=== PATIENT | female | born 1995 | race African-American/Black ===

== ENCOUNTER 2021-07-09 16:27 | Emergency (ER) | payer SELFPAY ==
[~2021-07-09] VITALS: Ht 165.1 cm; Wt 77.1 kg
[2021-07-09 16:27] VITALS: BP 126/62
--- NOTE | 2021-07-09 16:27 | NUR ---
C/O BILATERAL LOWER EXTREMITIES PAIN AND SWELLING, RECENT TRAVEL TO [facility] ARRIVED THIS AM. PT A/OX4. TOLERATING R/A WELL WITH NO SOB. PT ambulatory with a steady gait. CONNECTED PT TO POX AND MONITOR.
--- NOTE | 2021-07-09 17:49 | NUR ---
US TECH AT PT'S BEDSIDE
--- NOTE | 2021-07-09 18:25 | NUR ---
URINE COLLECTED AND SENT TO LAB
[2021-07-09 18:26] LABS: BASOPHILS # (AUTO) 0.1 K/uL (0.0-0.2); BASOPHILS % (AUTO) 0.6 % (0.0-2.0); EOSINOPHILS % (AUTO) 2.7 % (0.0-6.0); HEMATOCRIT 36 % (33-45); HEMOGLOBIN 11.9 g/dL (11.5-14.8); LYMPHOCYTES % (AUTO) 30.2 % (20.0-44.0); MEAN CORPUSCULAR HGB CONC 33 g/dl (31.0-36.0); MEAN CORPUSCULAR VOLUME 85 fL (82-100); MONOCYTES % (AUTO) 10.2 % (2.0-12.0); NEUTROPHILS # (AUTO) 5.6 K/uL (1.8-8.9); NEUTROPHILS % (AUTO) 56.3 % (43.0-81.0); PLATELET COUNT (AUTO) 272 K/uL (150-450); RED BLOOD CELL COUNT(AUTO) 4.27 MIL/uL (4.0-5.2); WHITE BLOOD COUNT (AUTO) 9.9 K/uL (4.3-11.0)
[2021-07-09 18:44] LABS: CALCIUM, SERUM 8.9 mg/dL (8.5-10.1); CREATININE 0.7 mg/dL (0.6-1.3); POTASSIUM 3.6 mmol/L (3.5-5.1)
[2021-07-09 18:50] LABS: ALBUMIN 3.8 g/dL (3.4-5.0); BILIRUBIN,TOTAL 0.2 mg/dL (0.2-1.0); TOTAL PROTEIN, SERUM 8.5 g/dL (6.4-8.2)
[2021-07-09 19:34] LABS: BILIRUBIN,URINE NEGATIVE (NEGATIVE); COLOR,URINE YELLOW (YELLOW); LEUKOCYTE ESTERASE ,URINE NEGATIVE (NEGATIVE); NITRITE, URINE NEGATIVE (NEGATIVE); PROTEIN,URINE NEGATIVE (NEGATIVE); UGLUCOSE NEGATIVE (NEGATIVE); UROBILINOGEN,URINE 0.2 EU/dL (0.2)
[2021-07-09] MEDS ORDERED: ACET-2605 PO (20:20)
--- NOTE | 2021-07-09 21:00 | NUR ---
STEPED INTO THE ROOM TO PROVIDE PT W/ THE D/C PAPERS. PT WAS GONE AND DID NOT WANNA WAIT FOR THE PAPERS.
== END 2021-07-09 21:00 | disposition home or self-care (01) ==
LOC: ER 16:35
DX: R60.0 Localized edema (principal)
CPT/HCPCS: 36415; 80048-TC; 80076-TC; 84703-TC; 85025-TC; 85730-TC; 93970-TC

== ENCOUNTER 2022-12-15 23:20 | Inpatient (IN) | payer MEDICAID, OTHER ==
[~2022-12-15] VITALS: Ht 167.6 cm; Wt 81.6 kg
[~2022-12-15 23:20] MED LIST: ACET-2605 PO
--- NOTE | 2022-12-15 23:24 | NUR ---
DAISY 87 FROM HOME FOR C/O PALPITATION X 30 MIN. -CP, +SOB PT A/OX4. TOLERATING R/A WELL WITH NO RESP DISTRESS. CONNECTED PT TO POX AND MONITOR. SAFETY MEASURES IN PLACE .
[2022-12-15] MEDS ORDERED: IV NS 0.9% 1,000 ML BAG IV ONE (23:30)
[2022-12-15] MEDS ORDERED: IV NS 0.9% 250 ML IV ONE (23:45)
[2022-12-15] MEDS ORDERED: CT SWABBABLE VALVE TRANS SET 1 EA INFUS.SET MC ONE (23:45)
[2022-12-15] MEDS ORDERED: IOHEXOL-350 100 ML VIAL IV ONE (23:45)
--- NOTE | 2022-12-15 23:48 | NUR ---
IV ESTABLISHED RAC #20G S/L. BLOOD AND URINE COLLECTED AND SENT TO LAB
[2022-12-16 00:02] LABS: BASOPHILS % (AUTO) 0.4 % (0.0-2.0); EOSINOPHILS % (AUTO) 1.8 % (0.0-6.0); HEMATOCRIT 37 % (33-45); HEMOGLOBIN 11.9 g/dL (11.5-14.8); LYMPHOCYTES # (AUTO) 3.5 K/uL (0.8-4.8); MEAN CORPUSCULAR HGB CONC 32 g/dl (31.0-36.0); MEAN CORPUSCULAR VOLUME 86 fL (82-100); MONOCYTES # (AUTO) 1.2 K/uL (0.1-1.30); NEUTROPHILS # (AUTO) 5.6 K/uL (1.8-8.9); NEUTROPHILS % (AUTO) 53.8 % (43.0-81.0); PLATELET COUNT (AUTO) 239 K/uL (150-450); WHITE BLOOD COUNT (AUTO) 10.5 K/uL (4.3-11.0)
[2022-12-16 00:08] LABS: CARBON DIOXIDE 25 mmol/L (21-32); CHLORIDE 99 mmol/L (98-107); CREATININE 0.8 mg/dL (0.6-1.3); GLUCOSE 120 mg/dL (74-106); POTASSIUM 3.2 mmol/L (3.5-5.1); SODIUM SERUM 135 mmol/L (136-145); UREA NITROGEN, BLOOD 7 mg/dL (7-18)
--- NOTE | 2022-12-16 00:42 | NUR ---
PT SIGNED WAIVER FORM
[2022-12-16 00:44] LABS: THYROID STIMULATING HORMONE 2.162 uIU/mL (0.358-3.74)
--- NOTE | 2022-12-16 00:44 | NUR ---
PT TAKEN TO CT VIA WILDA
[2022-12-16] MEDS ORDERED: IOHEXOL-350 100 ML VIAL IV ONE (01:11)
[2022-12-16] MEDS ORDERED: ACETAMINOPHEN 325 MG TABLET PO PRN (02:30)
[2022-12-16] MEDS ORDERED: ZOLPIDEM TARTRATE 5 MG TABLET PO PRN (02:30)
[2022-12-16] MEDS ORDERED: Z GUARD REMEDY 4 OZ OINT TP PRN (02:30)
[2022-12-16] MEDS ORDERED: MAGNESIUM HYDROXIDE 30 ML UDC PO PRN (02:30)
[2022-12-16] MEDS ORDERED: ONDANSETRON HCL/PF 4 MG/2 ML VIAL IVP PRN (02:30)
[2022-12-16] MEDS ORDERED: MAG HYDROX/AL HYDROX/SIMETH 30 ML UDC PO PRN (02:30)
[2022-12-16] MEDS ORDERED: IV NS 0.9% 1,000 ML IV PRN (02:30)
--- NOTE | 2022-12-16 02:34 | NUR ---
COVID ANTIGEN SWAB COLLECTED AND SENT TO LAB
[2022-12-16] MEDS ORDERED: POTASSIUM CHLORIDE 20 MEQ TAB.PRT.SR PO ONE ×2 (03:00→07:56)
[2022-12-16 03:15] LABS: BILIRUBIN,URINE NEGATIVE (NEGATIVE); COLOR,URINE YELLOW (YELLOW); LEUKOCYTE ESTERASE ,URINE 1+ (NEGATIVE); NITRITE, URINE NEGATIVE (NEGATIVE); PROTEIN,URINE NEGATIVE (NEGATIVE); UGLUCOSE NEGATIVE (NEGATIVE); UROBILINOGEN,URINE 0.2 EU/dL (0.2)
[2022-12-16 03:16] LABS: RBC,URINE 0-2 /HPF (0-2); SQUAMOUS EPITHELIAL CELL,UR Few /HPF (None Seen)
[2022-12-16 03:17] LABS: BACTERIA,URINE Few /HPF (None Seen)
--- NOTE | 2022-12-16 07:10 | NUR ---
RECEIVED PT FROM MARITO SANTOS PT AWAKE AND ALERT NO CHEST PAIN NO SOB
--- NOTE | 2022-12-16 07:37 | NUR ---
bed assigned going to 304.1. admitting aware.
--- NOTE | 2022-12-16 07:57 | NUR ---
report given to kwabena gleason. awaiting transfer to floor.
--- NOTE | 2022-12-16 08:07 | NUR ---
Luis Alfredo bell in ED - 12/16/22 at 0810 by MIREILLE RECEIVED PT FROM MARITO SANTOS PT AWAKE AND ALERT FALLOW COMAND RESPIRATION SPONT AND EASY NO CHEST PAIN NO SOB
[2022-12-16 09:00] VITALS: BP 120/80
[2022-12-16] MEDS ORDERED: CEFTRIAXONE 1 G in IV D5W 50 ML IV SCH (09:00)
[2022-12-16] MEDS ORDERED: ENOXAPARIN SODIUM 40 MG/0.4 ML DISP.SYRIN SQ SCH (09:00)
--- NOTE | 2022-12-16 10:32 | NUR ---
RN NOTES UPON INTERVIEW, PATIENT MENTIONED ALLERGY TO AMOXICILLIN PREVIOUSLY (BREAKOUTS AND RASH IN THE FACE AND NECK). UPDATED ALLERGY AND INFORMED PHARMACY. INFORMED HOSPITALIST, KEVIN GAVIRIA, AWAITING NEW ORDERS IF WILL PROCEED WITH CEFTRIAXONE.
--- NOTE | 2022-12-16 11:15 | NUR ---
NUTRITION SERVICES ASSOCIATE NOTES PATIENT IS ON TELE MONITORING UPON ADMISSION WITH READING OF SINUS TACHYCARDIA 82 HEART RATE. WILL CONTINUE TO MONITOR.
--- NOTE | 2022-12-16 11:20 | NUR ---
[facility] [employer] ADMITTING NOTES ADMITTED A 27Y/O FEMALE TO UNIT AT 0840 VIA GURNEY WITH DX OF SINUS TACHYCARDIA . PATIENT IS A/O X4 AND BALE TO MAKE NEEDS KNOWN. ORIENTED TO ROOM AND STAFF. V/S TAKEN, STABLE AND RECORDED. PT ON ROOM AIR, TOLERATING WELL, WITH NO ACUTE RESPIRATORY DISTRESS NOTED. IV ACCESS ON NOTED ON LEFT AC G# 20 , IVF OF NS @ 120ML/HR STARTED, NO S/S OF INFILTRATION AT SITE NOTED. LUNGS CLEAR ON AUSCULTATION BILATERALLY. ABDOMEN SOFT, NON TENDER AND NON DISTENDED WITH + BOWEL SOUNDS ON FOUR QUADRANTS. SKIN INTACT. SAFETY MEASURES IMPLEMENTED:BED PLACES ON LOWEST LOCKED POSITION WITH SR UP X2. TRAY TABLE AND CALL LIGHT W/I EASY REACH OF PT. WILL CONTINUE TO MONITOR PATIENT.
--- NOTE | 2022-12-16 11:24 | NUR ---
RN NOTES - HOSPITALIST ORDERED TO PUT A STOP ON CEFTRIAXONE, WILL CONTINUE TO MONITOR.
[2022-12-16 12:00] VITALS: BP 109/70
[2022-12-16 16:00] VITALS: BP 103/60
--- NOTE | 2022-12-16 17:30 | NUR ---
GENERAL MAINTENANCE HELPERBUN PANNER NOTES PT DISCHARGED TO HOME IN STABLE CONDITION, PT IS A/O X4 , ABLE TO MAKE NEEDS KNOWN, BREATHING WITHOUT ANY DIFFICULTY ON ROOM AIR, SATURATING WELL AT 98%. NOT IN ANY FORM OF ACUTE DISTRESS . DENIED PAIN NOR DISCOMFORT. VITAL SIGNS TAKEN , STABLE AND RECORDED. REMOVED ON TELE MONITORING, PT HEART RATE 80, NO EPISODE OF PALPITATIONS NOTED. DISCHARGE INSTRUCTIONS EXPLAINED AND GIVEN TO PT AND VERBALIZED UNDERSTANDING. IV ACCESS ON LEFT AC REMOVED, PRESSURE GAUZE APPLIED, NO BLEEDING NOTED. PT LEFT THE UNIT AT 1730 VIA PRIVATE CAR. MD AND CHARGE NURSE AWARE OF THE DISCHARGE.
== END 2022-12-16 17:20 | disposition home or self-care (01) | DRG 756 ==
LOC: ER 23:22 → TELE 12-16 07:40
PROVIDERS: ADMIT Student in an Organized Health Care Education/Training Program; ATTEND Student in an Organized Health Care Education/Training Program
DX: F41.9 Anxiety disorder, unspecified (principal); E87.1 Hypo-osmolality and hyponatremia; R00.0 Tachycardia, unspecified; R07.89 Other chest pain; Z20.822 Contact with and (suspected) exposure to COVID-19; E87.6 Hypokalemia; Z88.0 Allergy status to penicillin
CPT/HCPCS: 36415; 80048-TC; 81001; 84439-TC; 84443-TC; 84484-TC; 84703-TC; 85025-TC; 87081-TC; 87086-TC; 93307-TC; A4223; C9803; G0378; J0696; J1650; J7030; J7050; J7060; Q9967

== ENCOUNTER 2023-04-26 10:29 | Emergency (ER) | payer MEDICAID, OTHER ==
[~2023-04-26] VITALS: Ht 165.1 cm; Wt 85.7 kg
[2023-04-26 11:42] LABS: BASOPHILS % (AUTO) 0.7 % (0.0-2.0); EOSINOPHILS # (AUTO) 0.1 K/uL (0.0-0.7); EOSINOPHILS % (AUTO) 0.9 % (0.0-6.0); HEMATOCRIT 37 % (33-45); HEMOGLOBIN 12.1 g/dL (11.5-14.8); LYMPHOCYTES # (AUTO) 1.9 K/uL (0.8-4.8); MEAN CORPUSCULAR HEMOGLOBIN 28 PG (26.0-33.0); MEAN CORPUSCULAR HGB CONC 32 g/dl (31.0-36.0); MEAN CORPUSCULAR VOLUME 87 fL (82-100); MONOCYTES # (AUTO) 0.8 K/uL (0.1-1.30); MONOCYTES % (AUTO) 11.7 % (2.0-12.0); NEUTROPHILS # (AUTO) 4.3 K/uL (1.8-8.9); NEUTROPHILS % (AUTO) 60.7 % (43.0-81.0); PLATELET COUNT (AUTO) 264 K/uL (150-450); RED BLOOD CELL COUNT(AUTO) 4.32 MIL/uL (4.0-5.2); RED CELL DISTRIBUTION WIDTH 14.8 % (11.5-15.0); WHITE BLOOD COUNT (AUTO) 7.1 K/uL (4.3-11.0)
[2023-04-26 11:43] LABS: CALCIUM, SERUM 9.5 mg/dL (8.5-10.1); CREATININE 0.7 mg/dL (0.6-1.3); POTASSIUM 3.9 mmol/L (3.5-5.1)
[2023-04-26 11:44] LABS: APPEARANCE,URINE CLEAR (CLEAR); BILIRUBIN,URINE NEGATIVE (NEGATIVE); BLOOD, URINE NEGATIVE Ery/uL (NEGATIVE); COLOR,URINE YELLOW (YELLOW); KETONES,URINE TRACE mg/dL (NEGATIVE); LEUKOCYTE ESTERASE ,URINE NEGATIVE (NEGATIVE); NITRITE, URINE NEGATIVE (NEGATIVE); PROTEIN,URINE NEGATIVE (NEGATIVE); UGLUCOSE NEGATIVE (NEGATIVE); UROBILINOGEN,URINE 0.2 EU/dL (0.2)
[2023-04-26 11:45] LABS: PREGNANCY TEST URINE QUAL NEGATIVE (NEGATIVE)
[2023-04-26 11:48] LABS: ALBUMIN 3.8 g/dL (3.4-5.0); BILIRUBIN,DIRECT 0.1 mg/dL (0.0-0.2); BILIRUBIN,TOTAL 0.5 mg/dL (0.2-1.0)
[2023-04-26 11:56] LABS: RBC,URINE 0-2 /HPF (0-2)
[2023-04-26 11:57] LABS: ADD URINE CULTURE NO; BACTERIA,URINE Rare /HPF (None Seen); SQUAMOUS EPITHELIAL CELL,UR Few /HPF (None Seen); WBC,URINE 0-2 /HPF (0-3)
[2023-04-26] MEDS ORDERED: CYCL5TAB PO (12:56)
[2023-04-26] MEDS ORDERED: NAPR-1164 PO (12:56)
[2023-04-26 13:14] VITALS: BP 120/76; TEMP 98.3; O2SAT 100
== END 2023-04-26 13:15 | disposition home or self-care (01) ==
LOC: ER 10:32
DX: R10.30 Lower abdominal pain, unspecified (principal); Z60.2 Problems related to living alone; Z79.899 Other long term (current) drug therapy; Z88.1 Allergy status to other antibiotic agents; Z88.0 Allergy status to penicillin
CPT/HCPCS: 36415; 80048-TC; 80076-TC; 81001; 83690-TC; 84703-TC; 85025-TC

== ENCOUNTER 2023-05-24 20:18 | Emergency (ER) | payer OTHER ==
[~2023-05-24] VITALS: Ht 165.1 cm; Wt 77.1 kg
[~2023-05-24 20:18] MED LIST changes: +CYCL5TAB PO; +NAPR-1164 PO
[2023-05-24 22:49] VITALS: BP 118/66; TEMP 97.9; O2SAT 99
== END 2023-05-24 22:50 | disposition home or self-care (01) ==
LOC: ER 20:26
DX: M79.10 Myalgia, unspecified site (principal); R00.2 Palpitations; Z88.1 Allergy status to other antibiotic agents; Z60.2 Problems related to living alone; Z79.899 Other long term (current) drug therapy

== ENCOUNTER 2023-10-21 18:43 | Emergency (ER) | payer OTHER ==
[~2023-10-21] VITALS: Ht 165.1 cm; Wt 68.9 kg
[2023-10-21 20:09] LABS: APPEARANCE,URINE Clear (CLEAR); BILIRUBIN,URINE Negative (NEGATIVE); BLOOD, URINE Negative Ery/uL (NEGATIVE); COLOR,URINE YELLOW (YELLOW); KETONES,URINE Trace mg/dL (NEGATIVE); LEUKOCYTE ESTERASE ,URINE Negative (NEGATIVE); NITRITE, URINE Negative (NEGATIVE); PH,URINE 6.5 (5.0-8.0); PROTEIN,URINE Negative (NEGATIVE); UGLUCOSE Negative (NEGATIVE); UROBILINOGEN,URINE 0.2 EU/dL (0.2)
[2023-10-21 20:36] LABS: ADD URINE CULTURE NO; BACTERIA,URINE Rare /HPF (None Seen); MUCUS,URINE Moderate /LPF (None Seen); RBC,URINE 0-2 /HPF (0-2); SQUAMOUS EPITHELIAL CELL,UR Rare /HPF (None Seen); WBC,URINE 0-2 /HPF (0-3)
[2023-10-21 20:37] LABS: PREGNANCY TEST URINE QUAL NEGATIVE (NEGATIVE)
[2023-10-21 21:05] VITALS: BP 110/70; TEMP 98.1; O2SAT 99
== END 2023-10-21 21:05 | disposition home or self-care (01) ==
LOC: ER 18:46
DX: R05.3 Chronic cough (principal); R10.9 Unspecified abdominal pain; Z88.0 Allergy status to penicillin; Z88.8 Allergy status to other drugs, medicaments and biological substances; Z60.2 Problems related to living alone; Z79.899 Other long term (current) drug therapy
CPT/HCPCS: 71045-TC; 76856-TC; 81001; 84703-TC

== ENCOUNTER 2024-01-28 20:04 | Emergency (ER) | payer OTHER ==
[~2024-01-28] VITALS: Ht 165.1 cm; Wt 78.0 kg
[2024-01-28 21:40] LABS: BASOPHILS % (AUTO) 0.6 % (0.0-2.0); EOSINOPHILS # (AUTO) 0.1 K/uL (0.0-0.7); EOSINOPHILS % (AUTO) 1.4 % (0.0-6.0); HEMATOCRIT 36 % (33-45); HEMOGLOBIN 11.8 g/dL (11.5-14.8); LYMPHOCYTES # (AUTO) 2.9 K/uL (0.8-4.8); LYMPHOCYTES % (AUTO) 35.3 % (20.0-44.0); MEAN CORPUSCULAR HEMOGLOBIN 28 PG (26.0-33.0); MEAN CORPUSCULAR HGB CONC 33 g/dl (31.0-36.0); MEAN CORPUSCULAR VOLUME 85 fL (82-100); MONOCYTES # (AUTO) 0.9 K/uL (0.1-1.30); MONOCYTES % (AUTO) 10.6 % (2.0-12.0); NEUTROPHILS # (AUTO) 4.3 K/uL (1.8-8.9); NEUTROPHILS % (AUTO) 52.1 % (43.0-81.0); PLATELET COUNT (AUTO) 228 K/uL (150-450); RED BLOOD CELL COUNT(AUTO) 4.28 MIL/uL (4.0-5.2); RED CELL DISTRIBUTION WIDTH 14.6 % (11.5-15.0); WHITE BLOOD COUNT (AUTO) 8.2 K/uL (4.3-11.0)
[2024-01-28 21:46] LABS: CALCIUM, SERUM 9.2 mg/dL (8.5-10.1); CREATININE 0.7 mg/dL (0.6-1.3); POTASSIUM 3.8 mmol/L (3.5-5.1)
[2024-01-28 21:51] LABS: INR 1.03 (0.91-1.10); PARTIAL THROMBOPLASTIN TIME 27.6 SEC (24.3-34.3); PROTHROMBIN TIME 10.6 SECS (9.2-11.1)
[2024-01-28 21:53] LABS: ALBUMIN 3.2 g/dL (3.4-5.0); BILIRUBIN,DIRECT 0.1 mg/dL (0.0-0.2); BILIRUBIN,TOTAL 0.2 mg/dL (0.2-1.0); TOTAL PROTEIN, SERUM 7.5 g/dL (6.4-8.2)
[2024-01-28 22:38] LABS: APPEARANCE,URINE CLEAR (CLEAR); BILIRUBIN,URINE NEGATIVE (NEGATIVE); BLOOD, URINE NEGATIVE Ery/uL (NEGATIVE); COLOR,URINE YELLOW (YELLOW); KETONES,URINE NEGATIVE (NEGATIVE); LEUKOCYTE ESTERASE ,URINE NEGATIVE (NEGATIVE); NITRITE, URINE NEGATIVE (NEGATIVE); PROTEIN,URINE NEGATIVE (NEGATIVE); UGLUCOSE NEGATIVE (NEGATIVE); UROBILINOGEN,URINE 0.2 EU/dL (0.2)
[2024-01-28 23:42] VITALS: BP 109/72; TEMP 98.2; O2SAT 100
== END 2024-01-28 23:43 | disposition home or self-care (01) ==
LOC: ER 20:08
DX: O46.91 Antepartum hemorrhage, unspecified, first trimester (principal); R10.2 Pelvic and perineal pain; Z3A.01 Less than 8 weeks gestation of pregnancy; Z88.8 Allergy status to other drugs, medicaments and biological substances; Z60.2 Problems related to living alone
CPT/HCPCS: 36415; 76805-TC; 80048-TC; 80076-TC; 84702-TC; 85025-TC; 85730-TC